=== PATIENT | female | born 1955 | race African-American/Black ===

== ENCOUNTER 2018-05-22 07:03 | Inpatient (IN) | payer MEDICAID ==
[2018-05-22] MEDS ORDERED: IPRATROPIUM/ALBUTEROL 0.5-2.5 MG/3 ML AMPUL NEB ONE ×3 (07:15→07:29)
[2018-05-22] MEDS ORDERED: NORMAL SALINE 1000 ML 1,000 ML IV ONE (07:21)
[2018-05-22] MEDS ORDERED: ALBUTEROL SULFATE 0.083% NEB 2.5 MG/3 ML AMPUL NEB ONE ×2 (07:21→10:52)
[2018-05-22] MEDS ORDERED: METHYLPREDNISOLONE INJ 125 MG/2 ML SDV IV ONE (07:23)
--- NOTE | 2018-05-22 07:30 | ER Document Report ---
ED Respiratory Problem - General Mode of Arrival: Ambulatory Information source: Patient TRAVEL OUTSIDE OF THE [place] IN LAST 30 DAYS: No <JEFE GRIJALVA - Last Filed: 05/22/18 15:55> <HEMAL HUBER - Last Filed: 05/22/18 15:56> - General Chief Complaint: Breathing Difficulty Stated Complaint: DIFFICULTY BREATHING Time Seen by Provider: 05/22/18 07:21 Notes: 62-year-old female that presents to the emergency department today with complaints of shortness of breath that began at 0100 this morning. Patient states she received no relief with her Advair inhaler. Patient is a previous smoker, stopping 7 years ago. Patient states she does not have a history of COPD but she does have a history of asthma. Patient's shortness of breath is associated with a cough with green sputum. Patient denies fevers, chest pain, or history of intubation for asthma exacerbation in the past. (JEFE GRIJALVA) - Related Data Allergies/Adverse Reactions: hydromorphone HCl [From Dilaudid] Allergy (Verified 05/22/18 07:38) Past Medical History - General Information source: Patient - Social History Smoking Status: Never Smoker Cigarette use (# per day): No Frequency of alcohol use: None Drug Abuse: None Lives with: Family Family History: Reviewed & Not Pertinent - Past Medical History Cardiac Medical History: Reports: Hx Atrial Fibrillation, Hx Heart Attack, Hx Hypercholesterolemia, Hx Hypertension Pulmonary Medical History: Reports: Hx Asthma Endocrine Medical History: Reports: Hx Diabetes Mellitus Type 2 Renal/ Medical History: Reports: Hx Kidney Stones GI Medical History: Reports: Hx Gastroesophageal Reflux Disease Past Surgical History: Reports: Hx Hysterectomy, Hx Kidney (Renal Surgery) - stents - Immunizations Hx Diphtheria, Pertussis, Tetanus Vaccination: Yes Hx Pneumococcal Vaccination: 09/11/14 <JEFE GRIJALVA - Last Filed: 05/22/18 15:55> Review of Systems - Review of Systems Constitutional: denies: Fever EENT: No symptoms reported Cardiovascular: denies: Chest pain Respiratory: See HPI, Short of breath Gastrointestinal: No symptoms reported Genitourinary: No symptoms reported Female Genitourinary: No symptoms reported Musculoskeletal: No symptoms reported Skin: No symptoms reported Hematologic/Lymphatic: No symptoms reported Neurological/Psychological: No symptoms reported -: Yes All other systems reviewed and negative <JEFE GRIJALVA - Last Filed: 05/22/18 15:55> Physical Exam <JEFE GRIJALVA - Last Filed: 05/22/18 15:55> <HEMAL HUBER - Last Filed: 05/22/18 15:56> - Vital signs Vitals: Temp Pulse BP Pulse Ox 97.9 F 95 150/77 H 65 L 05/22/18 07:07 05/22/18 07:07 05/22/18 07:07 05/22/18 07:07 - Notes Notes: PHYSICAL EXAM GENERAL: Alert, appears acutely short of breath. HEAD: Normocephalic, atraumatic. EYES: Pupils equal, round, and reactive to light. Extraocular movements intact. ENT: Oral mucosa moist, tongue midline. NECK: Full range of motion. Supple. Trachea midline. LUNGS: Tachypneic. Expiratory rhonchi in the right lower lobe. Decreased air movement overall. Acutely short of breath. HEART: Regular rate and rhythm. No murmurs, gallops, or rubs. ABDOMEN: Soft, non-tender. Non-distended. Bowel sounds present in all 4 quadrants. No guarding, rigidity, or rebound. EXTREMITIES: Moves all 4 extremities spontaneously. No edema, radial and dorsalis pedis pulses 2/4 bilaterally. No cyanosis. NEUROLOGICAL: Alert and oriented x3. Normal speech. PSYCH: Normal affect, normal mood. SKIN: Warm, dry, normal turgor. No rashes or lesions noted. (JEFE GRIJALVA) Course - Laboratory Result Diagrams: 05/22/18 07:35 05/22/18 07:35 <RUDIJEFE - Last Filed: 05/22/18 15:55> - Laboratory Result Diagrams: 05/22/18 07:35 05/22/18 07:35 <HEMAL HUBER - Last Filed: 05/22/18 15:56> - Re-evaluation Re-evalutation: 05/22/18 10:54 62-year-old female presents to the emergency department acutely short of breath and hypoxic at 64%, patient was immediately placed on 4 L of nasal cannula, oxygenation came up to approximately 90%, she was quite tachypneic and appeared very short of breath so she was started on BiPAP, given 2 DuoNeb's and other treatments of albuterol. She initially only had trace wheezing but some right lower lobe rhonchi concerning for pneumonia. Chest x-ray showed possible vascular congestion but this is not consistent with her examination. White count of 20.6 and her history of a cough productive of green sputum is concerning for acute bacterial bronchitis. Patient was started on Zosyn initially, she does have a leukocytosis of 20.6, anemia with a hemoglobin 10.2, elevated platelets at 547. Coags normal, venous blood gas showed slightly elevated pH at 7.46, ABG after being started on BiPAP showed a alkalosis with pH of 7.51, PCO2 of 26.2, PO2 of 62.4, after several breathing treatments and steroid she was able to be weaned off of the BiPAP, patient does now have slightly increased wheezing so she will receive another breathing treatment. Chemistries show slight low potassium at 3.3, lactic acid slightly elevated at 2.2, troponin is indeterminate at 0.099. EKG has slight ST segment depressions but no evidence of STEMI and she does not have any chest pain. Both of these will be repeated. Urinalysis shows moderate blood, only 20 RBCs. Chest x-ray shows mild interstitial and alveolar airspace disease bilaterally which may reflect vascular congestion again this is not consistent with her presentation on physical examination. Patient will need to be admitted for IV antibiotics and her increased oxygen requirement, repeat steroids and repeat nebulizers. Will discuss with the hospitalist. 05/22/18 11:[address] Luciano and Dr. Kimball, accepted to Dr. Kimball service on the telemetry care unit. 05/22/18 15:56 (HEMAL HUBER) - Vital Signs Vital signs: Temp Pulse Resp BP Pulse Ox 98.8 F 94 28 H 141/75 H 90 L 05/22/18 14:27 05/22/18 15:27 05/22/18 14:27 05/22/18 14:27 05/22/18 14:27 - Laboratory Laboratory results interpreted by va: 05/22/18 05/22/18 05/22/18 07:35 07:35 07:35 WBC 20.6 H Hgb 10.2 L Hct 32.9 L MCV 76 L MCH 23.6 L MCHC 31.2 L RDW 18.6 H Plt Count 547 H Seg Neuts % (Manual) 88 H Band Neutrophils % 1 L Lymphocytes % (Manual) 7 L Abs Neuts (Manual) 18.3 H Carbonic Acid ABG pH ABG pCO2 ABG pO2 ABG HCO3 ABG Total CO2 VBG pH Potassium 3.3 L Glucose 124 H Lactic Acid 2.2 H Direct Bilirubin 0.5 H Urine Glucose (UA) Urine Blood 05/22/18 05/22/18 05/22/18 07:35 08:16 08:50 WBC Hgb Hct MCV MCH MCHC RDW Plt Count Seg Neuts % (Manual) Band Neutrophils % Lymphocytes % (Manual) Abs Neuts (Manual) Carbonic Acid 0.98 L ABG pH 7.51 H ABG pCO2 32.6 L ABG pO2 62.4 L ABG HCO3 25.2 H ABG Total CO2 26.2 H VBG pH 7.46 H Potassium Glucose Lactic Acid Direct Bilirubin Urine Glucose (UA) >=500 H Urine Blood MODERATE H - EKG Interpretation by Me Additional EKG results interpreted by me: 05/22/18 10:55 EKG shows sinus rhythm at a rate of 98, left axis deviation, normal intervals, LVH, slight ST segment depressions noted in V4, V5, V6, no ST segment elevations , no T wave inversions per my interpretation. (HEMAL HUBER) Critical Care Note - Critical Care Note Total time excluding time spent on procedures (mins): 45 <HEMAL HUBER - Last Filed: 05/22/18 15:56> Discharge <JEFE GRIJALVA - Last Filed: 05/22/18 15:55> - Discharge Admitting Provider: Hospitalist - [facility] Unit Admitted: Telemetry <HEMAL HUBER - Last Filed: 05/22/18 15:56> - Discharge Clinical Impression: Acute respiratory failure with hypoxia, Acute bacterial bronchitis, Troponin level elevated Acute asthma exacerbation Qualifiers: Asthma severity: unspecified severity Asthma persistence: unspecified Qualified Code(s): J45.901 - Unspecified asthma with (acute) exacerbation Condition: Fair Disposition: ADMITTED INPATIENT Scribe Attestation: 05/22/18 15:56 I personally performed the services described in the documentation, reviewed and edited the documentation which was dictated to the scribe in my presence, and it accurately records my words and actions. (HEMAL HUBER) Scribe Documentation - Scribe Written by Scribe:: Cl Bran, 05/22/2018 0940 acting as scribe for :: Charles <JEFE GRIJALVA - Last Filed: 05/22/18 15:55>
--- NOTE | 2018-05-22 07:38 | RADIOLOGY REPORT (SQ) ---
EXAM DESCRIPTION: X-ray single view chest. CLINICAL HISTORY: 62 years Female, cough,hypoxia, SOB, RLL crackles COMPARISON: None. TECHNIQUE: Single portable view of the chest performed on 05/22/2018 at 7:23 AM FINDINGS: The lungs are well expanded. There is mild interstitial and alveolar airspace disease bilaterally which may reflect vascular congestion. There is no evidence of a pneumothorax. The lateral costophrenic sulci are clear. The cardiac silhouette is prominent and may be accentuated by the portable technique. The mediastinal contours are normal. No acute osseous abnormality is identified. No focal soft tissue abnormalities are seen. Lines and tubes: None. IMPRESSION: 1. Mild interstitial and alveolar airspace disease bilaterally which may reflect vascular congestion. 2. Mild prominence of the cardiac silhouette which may be accentuated by the portable technique.
[2018-05-22 07:48] LABS: VENOUS BLOOD BASE EXCESS 5.2 mmol/L; VENOUS BLOOD HCO3 29.6 mmol/L (20-32); VENOUS BLOOD PH 7.46 (7.30-7.42)
[2018-05-22 07:53] LABS: INTERNATIONAL RATION (INR) 0.85; PROTHROMBIN TIME 12.1 SEC (11.4-15.4)
[2018-05-22 08:07] LABS: ALANINE AMINOTRANSFERASE 22 U/L (9-52); ALBUMIN 3.9 g/dL (3.5-5.0); ALKALINE PHOSPHATASE 91 U/L (38-126); ANION GAP 11 (5-19); ASPARTATE AMINO TRANSFERASE 21 U/L (14-36); BILIRUBIN,DIRECT 0.5 mg/dL (0.0-0.4); BILIRUBIN,TOTAL 0.5 mg/dL (0.2-1.3); BLOOD UREA NITROGEN 20 mg/dL (7-20); CALCIUM 9.9 mg/dL (8.4-10.2); CARBON DIOXIDE 30 mmol/L (22-30); CHLORIDE 102 mmol/L (98-107); GLUCOSE 124 mg/dL (75-110); HEMATOCRIT 32.9 % (36.0-47.0); HEMOGLOBIN 10.2 g/dL (12.0-15.5); MEAN CORPUSCULAR HEMOGLOBIN 23.6 pg (27.0-33.4); MEAN CORPUSCULAR HGB CONC 31.2 g/dL (32.0-36.0); MEAN CORPUSCULAR VOLUME 76 fl (80-97); PLATELET COUNT 547 10^3/uL (150-450); POTASSIUM 3.3 mmol/L (3.6-5.0); RED BLOOD COUNT 4.34 10^6/uL (3.72-5.28); RED CELL DISTRIBUTION WIDTH 18.6 % (11.5-14.0); SODIUM 142.9 mmol/L (137-145); TOTAL PROTEIN 7.2 g/dL (6.3-8.2); WHITE BLOOD COUNT 20.6 10^3/uL (4.0-10.5)
[2018-05-22 08:23] LABS: TROPONIN I 0.099 ng/mL
[2018-05-22] MEDS ORDERED: PIPERACILLIN/TAZOBACTAM 4.5 GM VIAL IV ONE (08:34)
[2018-05-22 08:35] LABS: ARTERIAL BLOOD BASE EXCESS 2.5 mmol/L; ARTERIAL BLOOD FIO2 30%; ARTERIAL BLOOD H2CO3 0.98 mmol/L (1.05-1.35); ARTERIAL BLOOD HCO3 25.2 mmol/L (20-24); ARTERIAL BLOOD PCO2 32.6 mmHg (35-45); ARTERIAL BLOOD PH 7.51 (7.35-7.45); ARTERIAL BLOOD PO2 62.4 mmHg (80-100); ARTERIAL BLOOD TOTAL CO2 26.2 mmol/L (21-25)
[2018-05-22 08:50] LABS: ABSOLUTE LYMPHOCYTES# (MANUAL) 1.4 10^3/uL (0.5-4.7); ABSOLUTE MONOCYTES # (MANUAL) 0.8 10^3/uL (0.1-1.4); ABSOLUTE NEUTROPHILS# (MANUAL) 18.3 10^3/uL (1.7-8.2); BAND NEUTROPHILS % (MANUAL) 1 % (3-5); BASOPHILS % (MANUAL) 0 % (0-2); EOSINOPHILS % (MANUAL) 0 % (0-6); LYMPHOCYTES % (MANUAL) 7 % (13-45); MONOCYTES % (MANUAL) 4 % (3-13); NUCLEATED RED BLOOD CELLS 1 /100 WBC (0); SEGMENTED NEUTROPHILS % (MAN) 88 % (42-78); TOTAL CELLS COUNTED 100
[2018-05-22 08:52] LABS: ANISOCYTOSIS 2+; HYPOCHROMASIA SLIGHT; PLATELET COMMENT INCREASED; POIKILOCYTOSIS SLIGHT; POLYCHROMASIA SLIGHT; TEAR DROP CELLS SLIGHT
[2018-05-22 09:16] LABS: APPEARANCE,URINE CLEAR; BILIRUBIN,URINE NEGATIVE (NEGATIVE); COLOR,URINE YELLOW; GLUCOSE, URINE >=500 mg/dL (NEGATIVE); KETONES,URINE NEGATIVE (NEGATIVE); LEUKOCYTE ESTERASE,URINE NEGATIVE (NEGATIVE); NITRITE,URINE NEGATIVE (NEGATIVE); PROTEIN,URINE NEGATIVE (NEGATIVE); URINE SPECIFIC GRAVITY 1.023; UROBILINOGEN,URINE NEGATIVE mg/dL (<2.0)
[2018-05-22] MEDS ORDERED: ACETAMINOPHEN 325 MG TABLET PO PRN (11:46)
[2018-05-22] MEDS ORDERED: ONDANSETRON HCL INJ/PF 4 MG/2 ML SDV IV PRN (11:46)
[2018-05-22] MEDS: RINGERS SOLUTION,LACTATED 1,000 ML IV PRN ×2 (12:11→17:28)
[2018-05-22] MEDS: IPRATROPIUM/ALBUTEROL 0.5-2.5 MG/3 ML AMPUL NEB SCH ×3 (12:12→20:05)
--- NOTE | 2018-05-22 12:27 | EKG REPORT ---
SEVERITY:- ABNORMAL ECG - SINUS RHYTHM LVH WITH SECONDARY REPOLARIZATION ABNORMALITY BORDERLINE PROLONGED QT INTERVAL : Confirmed by: Héctor Diggs 22-May-2018 12:26:55
--- NOTE | 2018-05-22 12:27 | EKG REPORT ---
SEVERITY:- ABNORMAL ECG - SINUS RHYTHM PROBABLE LEFT ATRIAL ABNORMALITY LVH WITH SECONDARY REPOLARIZATION ABNORMALITY ST DEPRESSION, CONSIDER ISCHEMIA, ANT-LAT LDS BORDERLINE PROLONGED QT INTERVAL : Confirmed by: Héctor Diggs 22-May-2018 12:27:04
--- NOTE | 2018-05-22 12:28 | PDOC H&P ---
History of Present Illness Admission Date/PCP: 05/22/18 11:10 Patient complains of: Acute shortness of breath History of Present Illness: EVONNE SAWANT is a 62 year old female with a long history of asthma. Patient states she was in her normal health yesterday prior to her admission. She awoke at 1 AM acutely short of breath wheezing with respiratory tightness. She presented to the emergency room with a saturation in the 60s. Patient is not on home oxygen she is on Advair singular and Ventolin inhaler as needed for treatment of her asthma. She has not required mechanical ventilation in the past. Patient was in significant respiratory distress on arrival in the emergency room was placed on BiPAP was given IV Solu-Medrol and repetitive breathing treatments. She responded well to those and was able to be weaned back to nasal cannula. Patient does have a history of coronary artery disease with a myocardial infarction approximately 5 years ago did undergo cardiac catheterization at that time but had no intervention performed. She has not followed up with a seed buyer since. Her EKG in the emergency room showed a sinus rhythm with LVH there is ST depression laterally. Her initial troponin was 0.09 mildly elevated however follow-up EKG remained unchanged and repeat troponin is pending. Patient denied any chest pain or pressure only the tightness of her bronchospasm. Patient's lactic acid was mildly elevated at 2.2 there is no obvious source of infection blood cultures and urine culture were obtained and patient was given an empiric antibiotic. Request for admission was made Past Medical History Cardiac Medical History: Reports: Myocardial Infarction, Hyperlipidema, Hypertension Pulmonary Medical History: Reports: Asthma Endocrine Medical History: Reports: Diabetes Mellitus Type 2 GI Medical History: Reports: Gastroesophageal Reflux Disease Musculoskeltal Medical History: Reports: None Skin Medical History: Reports: None Psychiatric Medical History: Reports: None Hematology: Reports: None Infectious Medical History: Reports: None Past Surgical History Past Surgical History: Reports: Hysterectomy, Other - Cardiac catheterization without intervention, colonoscopy Denies: Appendectomy, Cholecystectomy Social History Lives with: Family Smoking Status: Former Smoker Cigarettes Packs Per Day: 0.5 Number of Years Smokin Last Time Smoked: 7 years Frequency of Alcohol Use: None Drugs: None - Advance Directive Resuscitation Status: Full Code Family History Family History: DM, Hypertension, Other - Mother with stomach cancer sister with leukemia Parental Family History Reviewed: Yes Children Family History Reviewed: Yes Sibling(s) Family History Reviewed.: Yes Medication/Allergy Allergies/Adverse Reactions: hydromorphone HCl [From Dilaudid] Allergy (Verified 05/22/18 07:38) Physical Exam Vital Signs: Temp Pulse Resp BP Pulse Ox 98.9 F 94 26 H 142/64 H 97 05/22/18 10:44 05/22/18 08:52 05/22/18 11:31 05/22/18 11:31 05/22/18 11:31 General appearance: PRESENT: mild distress Eye exam: PRESENT: conjunctiva pink, EOMI, PERRLA. ABSENT: scleral icterus Mouth exam: PRESENT: moist, tongue midline Neck exam: PRESENT: carotid bruit - Bruit left harsh louder than right. ABSENT : JVD, lymphadenopathy, thyromegaly Respiratory exam: PRESENT: accessory muscle use, wheezes. ABSENT: rales, rhonchi Cardiovascular exam: PRESENT: RRR. ABSENT: diastolic murmur, rubs, systolic murmur Pulses: PRESENT: normal dorsalis pedis pul, +1 pedal pulses bilateral GI/Abdominal exam: PRESENT: normal bowel sounds, soft. ABSENT: distended, guarding, mass, organolmegaly, rebound, tenderness Extremities exam: PRESENT: full ROM. ABSENT: calf tenderness, clubbing, pedal edema Neurological exam: PRESENT: alert, awake, oriented to person, oriented to place , oriented to time, oriented to situation, CN II-XII grossly intact. ABSENT: motor sensory deficit Psychiatric exam: PRESENT: appropriate affect, normal mood. ABSENT: homicidal ideation, suicidal ideation Skin exam: PRESENT: dry, intact, warm. ABSENT: cyanosis, rash Results Impressions: Chest X-Ray 05/22/18 07:22 IMPRESSION: 1. Mild interstitial and alveolar airspace disease bilaterally which may reflect vascular congestion. 2. Mild prominence of the cardiac silhouette which may be accentuated by the portable technique. Assessment & Plan - Diagnosis (1) Acute respiratory failure with hypoxia Is this a current diagnosis for this admission?: Yes Plan: Sudden in onset associated with severe bronchospasm. Appears to have broken with Solu-Medrol and breathing treatments. Chest x-ray shows no infiltrate empiric antibiotics for suspected bronchitis given. There is no evidence of sepsis cultures are pending. (2) Acute asthma exacerbation Qualifiers: Asthma severity: unspecified severity Asthma persistence: unspecified Qualified Code(s): J45.901 - Unspecified asthma with (acute) exacerbation Is this a current diagnosis for this admission?: Yes Plan: IV Solu-Medrol 40 mg every 8 hours. Q. 4-hour breathing treatments while awake. Continue to titrate oxygen as indicated. (3) Troponin level elevated Is this a current diagnosis for this admission?: Yes Plan: Mild elevation trend troponins x2 if second elevated more than first will do additional. The mild elevation is not surprising given the degree of hypoxemia patient presented with. She has underlying coronary disease has not had an evaluation in 5 years and has no intervention with her [facility]. If troponin increases further will consult cardiology. (4) Coronary artery disease Is this a current diagnosis for this admission?: Yes Plan: EKG shows LVH with lateral ST horizontal depression. The EKG appears stable however with the elevated troponins the history of myocardial infarction will obtain an echocardiogram to assess wall motion abnormalities. Continue patient' s outpatient medications when med reconciliation complete and obtain an echocardiogram (5) Bilateral carotid bruits Is this a current diagnosis for this admission?: Yes Plan: Extremely harsh left bruit and a faint right. Patient has known coronary artery disease will rule out significant cardiac stenosis. (6) Acute bacterial bronchitis Is this a current diagnosis for this admission?: Yes Plan: We will treat with azithromycin only IV. (7) Esophageal reflux disease Qualifiers: Esophagitis presence: without esophagitis Qualified Code(s): K21.9 - Gastro -esophageal reflux disease without esophagitis Is this a current diagnosis for this admission?: Yes Plan: Continue proton pump - Time Time Spent: 50 to 70 Minutes Anticipated discharge: Home Within: within 48 hours - Inpatient Certification Medical Necessity: Significant Comorbidiites Make Outpatient Treatment Too Risky , Need Close Monitoring Due to Risk of Patient Decompensation, Need For Continuous Telemetry Monitoring
[2018-05-22] MEDS: METHYLPREDNISOLONE INJ 40 MG/1 ML SDV IV SCH ×2 (13:13→21:40)
--- NOTE | 2018-05-22 16:35 | RADIOLOGY REPORT (SQ) ---
EXAM DESCRIPTION: CAROTID DOPPLER COMPLETED DATE/TIME: 05/22/2018 3:49 pm REASON FOR STUDY: Bilateral bruit left greater than right COMPARISON: AP chest 05/22/2018 TECHNIQUE: Grayscale ultrasound, Doppler velocity and spectra, and color Doppler images acquired of the extra-cranial carotid and vertebral arteries. Images stored on PACS. LIMITATIONS: Difficult to obtain images during breath hold, patient would not hold her breath FINDINGS: RIGHT CAROTID CCA Velocities: Normal, peak systolic 1.2 m/sec, end diastolic 0.23 m/sec ICA Velocities Peak systolic 1.1 m/s. End diastolic 0.28 m/s. Proximal ICA/CCA peak systolic ratio 0.9. Spectra normal. No significant plaque. LEFT CAROTID CCA Velocities: Normal, peak systolic velocity 1.6 m/sec, end-diastolic velocity 0.24 m/sec ICA Velocities Peak systolic 1.1 m/s. End diastolic 0.2 m/s. Proximal ICA/CCA peak systolic ratio 0.9. Spectra normal. No significant plaque. VERTEBRAL ARTERIES: Antegrade flow. Normal waveforms. SUBCLAVIAN ARTERIES: Not evaluated OTHER: Right external carotid artery velocities are within normal range. On the left side, peak syst olic velocity of 5.2 m/sec is present indicating stenosis left external carotid artery. This likely accounts for the left carotid bruit IMPRESSION: NO HEMODYNAMICALLY SIGNIFICANT STENOSIS OF THE PROXIMAL RIGHT OR LEFT INTERNAL CAROTID A RTERIES AT THE BIFURCATIONS GREATER THAN 70% STENOSIS PROXIMAL LEFT EXTERNAL CAROTID ARTERY WITH PEAK SYSTOLIC VELOCITY OF 5.2 m/ SEC. THIS LIKELY ACCOUNTS FOR THE LEFT CAROTID BRUIT COMMENT: Quality ID #[id number]: Velocity criteria are extrapolated from the diameter data as defined by t he Society of Radiologists in Ultrasound Consensus Conference. Radiology 2003: 229; 340-346. TECHNICAL DOCUMENTATION: JOB ID: [id number] [employer]- All Rights Reserved Reading location - IP/workstation name: [facility]
[2018-05-22] MEDS ORDERED: (PENDING PHARMACY ID) (Insulin Aspart [Novolog Flexpen] 18 UNITS) SQ SCH (17:00)
[2018-05-22] MEDS ORDERED: INSULIN LISPRO 100 UNIT/ML 3 ML VIAL SUBCUT SCH (17:00)
[2018-05-22] MEDS ORDERED: DEXTROSE 50%-WATER 25 GM/50 ML DISP.SYRIN IV PRN ×2 (17:35)
[2018-05-22] MEDS ORDERED: DEXTROSE 40% GEL 15 GM TUBE PO PRN ×2 (17:35)
[2018-05-22] MEDS ORDERED: GLUCAGON,HUMAN RECOMB 1 MG INJ IM PRN (17:35)
[2018-05-22] MEDS ORDERED: INSULIN REG, HUMAN 100 UNIT/ML 3 ML VIAL (PYX) SUBCUT PRN (17:35)
[2018-05-22] MEDS ORDERED: CALCIUM CARBONATE 500 MG TABLET PO SCH (18:00)
[2018-05-22] MEDS ORDERED: FUROSEMIDE 20 MG TABLET PO SCH (18:00)
--- NOTE | 2018-05-22 19:40 | EKG REPORT ---
SEVERITY:- ABNORMAL ECG - SINUS RHYTHM CONSIDER LEFT VENTRICULAR HYPERTROPHY REPOL ABNRM SUGGESTS ISCHEMIA, DIFFUSE LEADS BORDERLINE PROLONGED QT INTERVAL : Confirmed by: Héctor Diggs 22-May-2018 19:39:45
[2018-05-22] MEDS ORDERED: ATENOLOL 50 MG TABLET PO SCH (22:00)
[2018-05-22] MEDS ORDERED: LATANOPROST 0.005% OPH SOLN 2.5 ML OU SCH (22:00)
[2018-05-22] MEDS ORDERED: IPRATROPIUM/ALBUTEROL 0.5-2.5 MG/3 ML AMPUL NEB PRN (23:40)
[2018-05-22] MEDS ORDERED: FUROSEMIDE INJ/PF 20 MG/2 ML SDV IV ONE (23:45)
[2018-05-23 00:34] VITALS: BP 147/80
[2018-05-23] MEDS ORDERED: FUROSEMIDE INJ/PF 20 MG/2 ML SDV ONE (00:54)
[2018-05-23] MEDS ORDERED: ENOXAPARIN SODIUM INJ 60 MG/0.6 ML DISP.SYRIN SUBCUT ONE (00:58)
[2018-05-23] MEDS ORDERED: SODIUM BICARBONATE 8.4% INJ 50 MEQ/50 ML DISP.SYRIN ONE ×4 (01:32→03:00)
[2018-05-23] MEDS ORDERED: EPINEPHRINE INJ 1 MG/10 ML DISP.SYRIN ONE ×3 (01:38→03:00)
[2018-05-23] MEDS ORDERED: ATROPINE SULFATE INJ 1 MG/10 ML DISP.SYRIN IV ONE ×2 (01:43→03:00)
[2018-05-23] MEDS ORDERED: EPINEPHRINE INJ/PF 1 MG/1 ML AMPULE ONE ×3 (01:49→01:55)
[2018-05-23] MEDS ORDERED: NOREPINEPHRINE BITARTRATE INJ/PF 4 MG/4 ML SDV IV ONE (02:01)
[2018-05-23 02:32] LABS: ALANINE AMINOTRANSFERASE 69 U/L (9-52); ALBUMIN 2.7 g/dL (3.5-5.0); ALKALINE PHOSPHATASE 80 U/L (38-126); ANION GAP 18 (5-19); ASPARTATE AMINO TRANSFERASE 100 U/L (14-36); BILIRUBIN,DIRECT 0.3 mg/dL (0.0-0.4); BILIRUBIN,TOTAL 0.3 mg/dL (0.2-1.3); BLOOD UREA NITROGEN 19 mg/dL (7-20); CALCIUM 8.7 mg/dL (8.4-10.2); CARBON DIOXIDE 22 mmol/L (22-30); CHLORIDE 105 mmol/L (98-107); POTASSIUM 3.5 mmol/L (3.6-5.0); SODIUM 145.2 mmol/L (137-145); TOTAL PROTEIN 5.4 g/dL (6.3-8.2)
[2018-05-23 03:02] LABS: GLUCOSE 430 mg/dL (75-110)
--- NOTE | 2018-05-23 04:04 | RADIOLOGY REPORT (SQ) ---
EXAM DESCRIPTION: XR CHEST 1 VIEW COMPLETED DATE/TME: 05/23/2018 00:56 CLINICAL HISTORY: SOB COMPARISON: 05/22/2018 FINDINGS: Single frontal view of the chest. Endotracheal tube with tip 1 cm above the rossy. Leads overlie the chest. The cardiomediastinal silhouette is normal characterized on this study due to adjacent opacity overlying structures. Significant interval increase in diffuse bilateral airspace opacities. No definite pneumothorax. No acute osseous abnormalities. Upper abdominal soft tissues are unremarkable. IMPRESSION: 1. Significant interval increase in diffuse bilateral airspace opacities. Minimal aeration of the left lung base. 2. Endotracheal tube with tip 1 cm the rossy.
[2018-05-23] MEDS ORDERED: LANSOPRAZOLE 30 MG TAB.RAP.DR PO SCH (06:00)
--- NOTE | 2018-05-23 07:52 | Death Summary ---
Summary Date : 05/23/18 Time of :: 02:33 Autopsy: No Resuscitation Status: Full Code - Final Diagnosis (1) Acute respiratory failure with hypoxia Is this a current diagnosis for this admission?: Yes (2) Acute asthma exacerbation Is this a current diagnosis for this admission?: Yes (3) Troponin level elevated Is this a current diagnosis for this admission?: Yes (4) Coronary artery disease Is this a current diagnosis for this admission?: Yes (5) Bilateral carotid bruits Is this a current diagnosis for this admission?: Yes (6) Acute bacterial bronchitis Is this a current diagnosis for this admission?: Yes (7) Esophageal reflux disease Is this a current diagnosis for this admission?: Yes Hospital Course:: Patient is a 62-year-old -[place] female who was admitted through the emergency room with hypoxemic respiratory failure. Patient has a history of significant asthma and presented with severe bronchospasm and hypoxemia with saturations in the 60% range. She responded well to breathing treatments Solu- Medrol and the cerumen was taken off the BiPAP onto nasal cannula. Her initial EKG showed LVH with ST depression in the lateral precordial leads. Her troponin was mildly elevated at 0.99 which was felt to be a demand ischemia as the patient had no complaint of chest pain and the tightness was related only to her bronchospasm. Serial troponins were ordered and they peaked at 0.18 and then down trended to 0.14. Sequential EKGs remained unchanged showing the same repolarization pattern with the lateral precordial leads. This was felt to be consistent with demand ischemia from her presenting hypoxemia. The patient remained stable throughout the day. Later that evening she became increasingly short of breath once again developing bronchospasm she was placed back on the BiPAP. A subsequent troponin done at midnight had increased to 0.8. As patient began to decline EKG performed revealed ST elevation in the cheerier lateral leads. She subsequently only sustained a respiratory arrest and a CODE BLUE was called. Patient was resuscitated however never achieved return to circulation. Patient at 02:33 May 23, 2018
[2018-05-23] MEDS ORDERED: AZITHROMYCIN INJ 500 MG VIAL IV SCH (10:00)
[2018-05-23] MEDS ORDERED: INSULIN GLARGINE,HUM.REC.ANLOG 300 UNIT/3 ML INSULN.PEN SUBCUT SCH (10:00)
[2018-05-23] MEDS ORDERED: LORATADINE 10 MG TABLET PO SCH (10:00)
[2018-05-23] MEDS ORDERED: ASPIRIN 81 MG TABLET, ENT COATED PO SCH (10:00)
[2018-05-23] MEDS ORDERED: GEMFIBROZIL 600 MG TABLET PO SCH (10:00)
[2018-05-23] MEDS ORDERED: (PENDING PHARMACY ID) (Canagliflozin [Invokana] 300 MG) PO SCH (10:00)
[2018-05-23] MEDS ORDERED: AMLODIPINE BESYLATE 10 MG TABLET PO SCH (10:00)
[2018-05-23] MEDS ORDERED: (PENDING PHARMACY ID) (Omega-3 Fatty Acids/Fish Oil [Fish Oil 1,000 Mg Capsule] 1 CAP) PO SCH (10:00)
[2018-05-23] MEDS ORDERED: AZITHROMYCIN 500 MG in DEXTROSE 5%-WATER 250 ML IV SCH (10:00)
[2018-05-23] MEDS ORDERED: OMEGA-3 ACID ETHYL ESTERS 1 GM CAPSULE PO SCH (10:00)
[2018-05-23] MEDS ORDERED: ENOXAPARIN SODIUM INJ 40 MG/0.4 ML DISP.SYRIN SUBCUT SCH (10:00)
--- NOTE | 2018-05-23 11:13 | EKG REPORT ---
SEVERITY:- ABNORMAL ECG - SINUS RHYTHM PROBABLE LEFT ATRIAL ABNORMALITY RBBB AND LAFB LEFT VENTRICULAR HYPERTROPHY : Confirmed by: Héctor Diggs 23-May-2018 11:12:05
--- NOTE | 2018-05-25 19:37 | XCELERA REPORT ---
[address] [address] Transthoracic Echocardiogram Report Name: EVONNE SAWANT Age: 62 yrs Gender: Female : 1955 Patient Status: Inpatient Patient Location: [address] [place], [place] [id number] Study Date: 05/22/2018 02:44 PM Height: 69 in Weight: 260 lb BSA: 2.3 m2 Procedure: A two-dimensional transthoracic echocardiogram with color flow and Doppler was performed. Study Quality: Fair. Reason For Study: Abnormal EKG History: Abnormal EKG. Ordering Physician: CARLIN AGUIRRE Performed By: Irasema Harris Interpretation Summary The left ventricle is normal in size. There is mild concentric left ventricular hypertrophy. LV EF is 65% Left ventricular systolic function is normal. Doppler measurements suggest normal left ventricular diastolic function The left ventricular wall motion is normal. There is no thrombus. There is no ventricular septal defect visualized. The right ventricle is grossly normal size. The right ventricle is not well visualized secondary to technical limitations The right atrium is normal. The left atrial size is normal. The interatrial septum is intact with no evidence for an atrial septal defect. There is no evidence of mitral valve prolapse. There is no vegetation seen on the mitral valve. There is no mitral valve stenosis. There is a trace amount of mitral regurgitation There is no aortic valvular vegetation. There is no aortic valve stenosis There is no LVOT obstruction. No aortic regurgitation is present. There is no tricuspid stenosis. There is a mild to moderate amount of tricuspid regurgitation Mild to Moderate Pulmonary Hypertension.RVSP is 47 to 52 mm of Hg , with RA mean of 5 to 10. There is no pulmonic valvular stenosis. There is no pulmonic valvular regurgitation. The aortic root is normal size. The inferior vena cava appeared normal and decreased > 50% with respiration (RAP 5-10 mmHg) There is no pericardial effusion. MMode/2D Measurements & Calculations RVDd: 3.4 cm LVIDd: 4.8 cm FS: 36.7 % Ao root diam: 2.0 cm IVSd: 1.2 cm LVIDs: 3.0 cm EDV(Teich): 107.6 ml Ao root area: 3.0 cm2 LVPWd: 1.2 cm ESV(Teich): 36.1 ml LA dimension: 4.0 cm EF(Teich): 66.5 % Doppler Measurements & Calculations MV E max radha: MV P1/2t max radha: Ao V2 max: LV V1 max P.2 cm/sec 138.7 cm/sec 185.4 cm/sec 9.1 mmHg MV A max radha: MV P1/2t: 76.9 msec Ao max PG: LV V1 max: 123.9 cm/sec MVA(P1/2t): 2.9 cm2 13.7 mmHg 151.0 cm/sec MV E/A: 1.1 MV dec slope: 528.5 cm/sec2 MV dec time: 0.25 sec PA V2 max: TR max radha: MV P1/2t-pr_phl: 97.7 cm/sec 322.5 cm/sec 76.9 msec PA max P.8 mmHgTR max P.6 mmHg Left Ventricle The left ventricle is normal in size. There is mild concentric left ventricular hypertrophy. LV EF is 65%. Left ventricular systolic function is normal. Doppler measurements suggest normal left ventricular diastolic function. The left ventricular wall motion is normal. There is no thrombus. There is no ventricular septal defect visualized. Right Ventricle The right ventricle is grossly normal size. The right ventricle is not well visualized secondary to technical limitations. Atria The right atrium is normal. The left atrial size is normal. The interatrial septum is intact with no evidence for an atrial septal defect. Mitral Valve There is no evidence of mitral valve prolapse. There is no vegetation seen on the mitral valve. There is no mitral valve stenosis. There is a trace amount of mitral regurgitation. Aortic Valve There is no aortic valvular vegetation. There is no aortic valve stenosis. There is no LVOT obstruction. No aortic regurgitation is present. Tricuspid Valve There is no tricuspid stenosis. There is a mild to moderate amount of tricuspid regurgitation. Mild to Moderate Pulmonary Hypertension.RVSP is 47 to 52 mm of Hg , with RA mean of 5 to 10. Pulmonic Valve There is no pulmonic valvular stenosis. There is no pulmonic valvular regurgitation. Great Vessels The aortic root is normal size. The inferior vena cava appeared normal and decreased > 50% with respiration (RAP 5-10 mmHg). Effusions There is no pericardial effusion. : CARLIN AGUIRRE > Mindy Randhawa
== END 2018-05-23 04:30 | disposition left against medical advice (07) | DRG 189 ==
LOC: ER 07:03 → EH 11:10 → 4N 14:20
PROVIDERS: ADMIT Emergency Medicine; ATTEND Emergency Medicine
PROC: 0BH17EZ Insertion of Endotracheal Airway into Trachea, Via Natural or Artificial Opening (ICD-10-PCS; principal; 2018-05-23)
DX: J96.01 Acute respiratory failure with hypoxia (principal); J45.901 Unspecified asthma with (acute) exacerbation; J20.9 Acute bronchitis, unspecified; I25.10 Atherosclerotic heart disease of native coronary artery without angina pectoris; R74.8 Abnormal levels of other serum enzymes; R09.89 Other specified symptoms and signs involving the circulatory and respiratory systems; I25.2 Old myocardial infarction; E78.5 Hyperlipidemia, unspecified; I10 Essential (primary) hypertension; E11.9 Type 2 diabetes mellitus without complications; K21.9 Gastro-esophageal reflux disease without esophagitis; Z90.710 Acquired absence of both cervix and uterus; Z87.891 Personal history of nicotine dependence; Z88.5 Allergy status to narcotic agent; Z82.49 Family history of ischemic heart disease and other diseases of the circulatory system; Z83.3 Family history of diabetes mellitus; Z80.0 Family history of malignant neoplasm of digestive organs; Z80.6 Family history of leukemia
CPT/HCPCS: 31500; 36415; 71045; 80053; 81001; 82803; 82962; 83605; 83880; 84484; 85025; 85610; 87040; 87086; 92950; 93005; 93010; 93306; 93880; 94640; 94660; 96361; 96365; 96375; 99291; J0171; J0456; J0461; J1650; J1815; J1940; J2543; J2920; J2930; J3490; J7060; J7620